=== PATIENT | male | born 1970 | race Caucasian/White ===

== ENCOUNTER 2021-09-25 09:46 | Emergency (ER) | payer SELFPAY ==
[2021-09-25 09:54] VITALS: BMI 26.4
[2021-09-25] MEDS ORDERED: DIPHTH,PERTUSS(ACELL),TET 0.5 ML DISP.SYRIN IM ONE (09:54)
[2021-09-25 10:46] LABS: BASO % 0.4 % (0-2.0); HEMATOCRIT 41.8 % (35.4-49); HEMOGLOBIN 13.6 GM/dL (11.7-16.9); LYMPH % 36.8 % (8-40); MCH 25.4 pg (25.7-33.7); MCHC 32.7 g/dl (32.0-35.9); MEAN CELL VOLUME 77.8 fl (80-96); MEAN PLT VOLUME 8.1 fl (7.5-11.1); MONO % 7.5 % (3.8-10.2); NEUT % 53.3 % (42.8-82.8); PLATELET COUNT 261 10^3/uL (134-434); RBC 5.37 M/mm3 (4.00-5.60); RDW 14.5 % (11.9-15.9); WHITE BLOOD COUNT 7.5 K/mm3 (4.0-10.0)
[2021-09-25 11:01] LABS: INR 1.15 (0.83-1.09); PROTHROMBIN TIME (PATIENT) 13.3 SEC (9.7-13.0)
[2021-09-25 11:04] LABS: ACTIVATED PTT 30.9 SECONDS (25.2-36.5)
[2021-09-25 11:15] LABS: CALCIUM 8.9 mg/dL (8.5-10.1)
[2021-09-25 11:16] LABS: ALBUMIN 4.1 g/dl (3.4-5.0); BLOOD UREA NITROGEN 14.2 mg/dL (7-18)
[2021-09-25 11:19] LABS: CREATININE 1.1 mg/dL (0.55-1.3)
[2021-09-25 11:21] LABS: BILIRUBIN,TOTAL 0.4 mg/dL (0.2-1); TOT PROT 7.8 g/dl (6.4-8.2)
[2021-09-25 13:28] VITALS: BP 112/58; PULSE 74
== END 2021-09-25 14:03 | disposition home or self-care (01) ==
LOC: JER 09:46
PROC: 3E033GC Introduction of Other Therapeutic Substance into Peripheral Vein, Percutaneous Approach (ICD-10-PCS; principal; 2021-09-25)
PROC: 3E0234Z Introduction of Serum, Toxoid and Vaccine into Muscle, Percutaneous Approach (ICD-10-PCS; 2021-09-25)
DX: S31.813A Puncture wound without foreign body of right buttock, initial encounter (principal); X99.1XXA Assault by knife, initial encounter
CPT/HCPCS: 36415; 74177-TC; 80053; 85025; 85610; 85730; 86850; 86900; 86901; 90715; 93005; 93010; 99291; C9803-CS; Q9967; U0003; U0005

== ENCOUNTER 2021-10-07 10:54 | Emergency (ER) | payer SELFPAY ==
[2021-10-07 11:08] VITALS: BP 99/62; RESP 17; TEMP 98; BMI 25.0
[2021-10-07] MEDS ORDERED: BACITRACIN 15 GM TUBE TOPICAL OINTMENT TP ONE (12:38)
[2021-10-07] MEDS ORDERED: BACITRACIN 15 GM TUBE TOPICAL OINTMENT ONE (12:38)
[2021-10-07 12:40] VITALS: PULSE 90
[2021-10-08] MEDS ORDERED: BACITRACIN 15 GM TUBE TOPICAL OINTMENT TP ONE (12:38)
== END 2021-10-07 12:56 | disposition home or self-care (01) ==
LOC: JER 10:54 → JERFT 10:54
DX: S31.811A Laceration without foreign body of right buttock, initial encounter (principal); X99.1XXA Assault by knife, initial encounter; Z48.02 Encounter for removal of sutures
CPT/HCPCS: 99281-25

== ENCOUNTER 2022-06-02 18:28 | Emergency (ER) | payer SELFPAY ==
[2022-06-02 18:39] VITALS: TEMP 97.7; BMI 29.0
[2022-06-02] MEDS ORDERED: morphine CARPU-JECT 4 MG/1 ML DISP.SYRIN IVPUSH ONE (19:01)
[2022-06-02] MEDS ORDERED: SODIUM CHLORIDE 0.9% 500 ML INFUS.BAG IV ONE (19:06)
[2022-06-02] MEDS ORDERED: morphine SULFATE 4 MG/ML VIAL ONE (19:33)
[2022-06-02 19:49] LABS: BASO % 0.4 % (0-2.0); EOS % 1.2 % (0-4.5); HEMATOCRIT 36.1 % (35.4-49); HEMOGLOBIN 11.9 GM/dL (11.7-16.9); LYMPH % 17.4 % (8-40); MCH 25.5 pg (25.7-33.7); MCHC 32.9 g/dl (32.0-35.9); MEAN CELL VOLUME 77.6 fl (80-96); MEAN PLT VOLUME 7.1 fl (7.5-11.1); MONO % 5.9 % (3.8-10.2); NEUT % 75.1 % (42.8-82.8); PLATELET COUNT 255 10^3/uL (134-434); RBC 4.65 M/mm3 (4.00-5.60); RDW 14.4 % (11.9-15.9); WHITE BLOOD COUNT 7.1 K/mm3 (4.0-10.0)
[2022-06-02 19:57] LABS: INR 1.12 (0.83-1.09)
[2022-06-02 19:59] LABS: ACTIVATED PTT 28.6 SECONDS (25.2-36.5)
[2022-06-02 20:09] LABS: CHLORIDE 106 mmol/L (98-107); SODIUM 140 mmol/L (136-145)
[2022-06-02 20:10] LABS: CALCIUM 8.5 mg/dL (8.5-10.1)
[2022-06-02 20:11] LABS: ALBUMIN 3.5 g/dl (3.4-5.0); ANION GAP 5 MMOL/L (8-16); BLOOD UREA NITROGEN 27.4 mg/dL (7-18); CO2 29 mmol/L (21-32); GLUCOSE,RANDOM 128 mg/dL (74-106)
[2022-06-02 20:14] LABS: CREATININE 0.9 mg/dL (0.55-1.3); SGOT/AST 23 U/L (15-37); SGPT/ALT 21 U/L (13-61)
[2022-06-02 20:16] LABS: BILIRUBIN,TOTAL 0.2 mg/dL (0.2-1); TOT PROT 6.9 g/dl (6.4-8.2)
[2022-06-02 20:18] LABS: ALK PHOS 38 U/L (45-117)
[2022-06-02] MEDS ORDERED: LORazepam 2 MG/ML SDV VIAL IM ONE (20:57)
[2022-06-02] MEDS ORDERED: HALOPERIDOL DECANOATE 500 MG/5ML MDV IM ONE (20:57)
[2022-06-02] MEDS ORDERED: HALOPERIDOL LACTATE 5 MG/ML IM ONE (21:00)
[2022-06-02 21:55] VITALS: RESP 16
[2022-06-02] MEDS ORDERED: CEFAZOLIN SODIUM 2 GM in DEXTROSE 5%-WATER 100 ML IVPB ONE (22:15)
[2022-06-02] MEDS ORDERED: CEFAZOLIN SODIUM 2 GM VIAL ONE (22:39)
[2022-06-03 02:49] VITALS: BP 128/65; PULSE 78
[2022-06-03] MEDS ORDERED: ceFAZolin 2 GRAM PREMIX BAG IVPB ONE (22:07)
== END 2022-06-03 02:56 | disposition short-term general hospital (02) ==
LOC: JER 18:28
PROC: 3E03329 Introduction of Other Anti-infective into Peripheral Vein, Percutaneous Approach (ICD-10-PCS; principal; 2022-06-02)
PROC: 3E033GC Introduction of Other Therapeutic Substance into Peripheral Vein, Percutaneous Approach (ICD-10-PCS; 2022-06-02)
PROC: 3E023GC Introduction of Other Therapeutic Substance into Muscle, Percutaneous Approach (ICD-10-PCS; 2022-06-02)
PROC: 3E023GC Introduction of Other Therapeutic Substance into Muscle, Percutaneous Approach (ICD-10-PCS; 2022-06-02)
PROC: 0HQ1XZZ Repair Face Skin, External Approach (ICD-10-PCS; 2022-06-02)
DX: S01.81XA Laceration without foreign body of other part of head, initial encounter (principal); S01.511A Laceration without foreign body of lip, initial encounter; S11.81XA Laceration without foreign body of other specified part of neck, initial encounter; S21.319A Laceration without foreign body of unspecified front wall of thorax with penetration into thoracic cavity, initial encounter; Y02.0XXA Assault by pushing or placing victim in front of motor vehicle, initial encounter; Z20.822 Contact with and (suspected) exposure to COVID-19
CPT/HCPCS: 36415; 70450-TC; 70486-TC; 71046-TC-FY; 72125-TC; 80053; 80307; 83605; 85025; 85610; 85730; 86850; 86900; 86901; 93005; 93010; 99285-25; C9803-CS; U0003; U0005

== ENCOUNTER 2023-10-08 14:44 | Emergency (ER) | payer SELFPAY ==
[2023-10-08 14:54] VITALS: TEMP 97.6
[2023-10-08] MEDS ORDERED: ASPIRIN 81 MG CHEWABLE TABLETS ONE (15:05)
[2023-10-08] MEDS: ASPIRIN 325 MG TABLET PO ONE (15:07)
[2023-10-08 15:46] LABS: HEMOGLOBIN 13.6 G/dL (11.7-16.9); MCH 24.9 pg (25.7-33.7); MCHC 31.6 g/dl (32.0-35.9); MEAN CELL VOLUME 78.7 fl (80-96); MEAN PLT VOLUME 8.2 fl (7.5-11.1); RBC 5.46 10^6/uL (4.00-5.60); RDW 16.4 % (11.9-15.9); WHITE BLOOD COUNT 7.9 10^3/uL (4.0-10.8)
[2023-10-08 16:17] LABS: ALBUMIN 4.4 g/dl (3.4-5.0); BILIRUBIN,TOTAL 0.3 mg/dl (0.2-1); CALCIUM 9.3 mg/dl (8.5-10.1); POTASSIUM 4.3 mmol/L (3.5-5.1); TOT PROT 7.1 g/dl (6.4-8.2)
[2023-10-08 16:45] VITALS: BP 121/80; PULSE 90; RESP 15
[2023-10-08 17:41] LABS: PLATELET ESTIMATE ADEQUATE
== END 2023-10-08 16:50 | disposition home or self-care (01) ==
LOC: FER 14:44
DX: R07.9 Chest pain, unspecified (principal)
CPT/HCPCS: 36415; 71046-TC-FY; 80053; 83880; 84484; 85027; 85379; 93005; 99285-25